=== PATIENT | male | born 1985 | race African-American/Black ===

== ENCOUNTER 2022-10-18 12:36 | Emergency (ER) | payer SELFPAY ==
[~2022-10-18] VITALS: Ht 172.7 cm; Wt 66.8 kg
[2022-10-18 14:15] VITALS: BP 130/89
== END 2022-10-18 14:16 | disposition home or self-care (01) ==
LOC: EMS 12:40
DX: S61.214A Laceration without foreign body of right ring finger without damage to nail, initial encounter (principal); F12.90 Cannabis use, unspecified, uncomplicated; F17.210 Nicotine dependence, cigarettes, uncomplicated; W45.8XXA Other foreign body or object entering through skin, initial encounter; Y93.89 Activity, other specified; Y92.89 Other specified places as the place of occurrence of the external cause; Y99.8 Other external cause status
CPT/HCPCS: 12001; 99282; Z7502